=== PATIENT | female | born 1985 | race Caucasian/White ===

== ENCOUNTER 2021-02-03 17:18 | Emergency (ER) | payer OTHER ==
[~2021-02-03] VITALS: Ht 167.6 cm; Wt 63.5 kg
[2021-02-03 17:30] VITALS: BP 135/60
== END 2021-02-03 18:29 | disposition left against medical advice (07) ==
LOC: ER 17:18
DX: F41.9 Anxiety disorder, unspecified (principal); Z53.21 Procedure and treatment not carried out due to patient leaving prior to being seen by health care provider